=== PATIENT | male | born 1975 | race Caucasian/White ===

== ENCOUNTER 2021-04-02 14:22 | Inpatient (IN) | payer SELFPAY ==
[~2021-04-02] VITALS: Ht 160 cm; Wt 72.0 kg
--- NOTE | 2021-04-02 14:35 | ED Cough/URI ---
General Stated Complaint: SOB,COVID + Source: patient Exam Limitations: no limitations (BINDU GARNER APRN) History of Present Illness Date Seen by Provider: Apr 02, 2021 Time Seen by Provider: 14:35 Initial Comments To ER from [facility] walk-in clinic with reports of shortness of breath. He was swabbed for Covid and found to be positive. His symptoms started about 4 days ago. He formerly saw Dr. Francois but states that he has not seen him in a long time. Timing/Duration: just prior to arrival, getting worse Severity/Quality: moderate Modifying Factors: Worse With Activity Associated Symptoms: cough, shortness of breath (BINDU GARNER APRN) Allergies and Home Medications Allergies Coded Allergies: No Allergy Information Available (Unverified , 04/02/21) Patient Home Medication List Home Medication List Reviewed: Yes (BINDU GARNER APRN) Review of Systems Review of Systems Constitutional: see HPI, chills, weakness EENTM: see HPI Respiratory: see HPI, cough, short of breath Cardiovascular: no symptoms reported Genitourinary: no symptoms reported Musculoskeletal: no symptoms reported Skin: no symptoms reported Psychiatric/Neurological: No Symptoms Reported Hematologic/Lymphatic: No Symptoms Reported (BINDU GARNER APRN) Physical Exam Vital Signs - First Documented 04/02/21 14:33 Temp 37.2 Pulse 87 Resp 24 B/P (MAP) 137/79 (98) Pulse Ox 81 O2 Delivery Room Air (CORBY ALEXANDER MD) Capillary Refill : (BINDU GARNER APRN) Height: '" Weight: lbs. oz. kg; BMI Method: General Appearance: WD/WN, no apparent distress, other (Speaks in phrases. Tachypneic with a respiratory rate of about 28. Oxygen saturation 80% on room air. Comes up to 94% with 3 L supplemental oxygen.) Eyes: Bilateral Eye Normal Inspection, Bilateral Eye PERRL, Bilateral Eye EOMI Neck: non-tender, full range of motion Respiratory: no respiratory distress, no accessory muscle use, decreased breath sounds Cardiovascular: regular rate, rhythm, no murmur Gastrointestinal: normal bowel sounds, non tender Extremities: normal range of motion, non-tender Neurologic/Psychiatric: alert, normal mood/affect, oriented x 3 Skin: normal color, warm/dry (BINDU GARNER APRN) Progress/Results/Core Measures Suspected Sepsis SIRS Temperature: Pulse: Respiratory Rate: Laboratory Tests 04/02/21 14:33: White Blood Count 5.1 Blood Pressure / Mean: Laboratory Tests 04/02/21 14:33: Creatinine 0.92, INR Comment 0.9, Platelet Count 170, Total Bilirubin 0.8 (BINDU GARNER APRN) Results/Orders Lab Results Laboratory Tests Test 04/02/21 14:33 Range/Units White Blood Count 5.1 4.3-11.0 10^3/uL Red Blood Count 5.99 H 4.30-5.52 10^6/uL Hemoglobin 16.2 13.3-17.7 g/dL Hematocrit 49 40-54 % Mean Corpuscular Volume 81 80-99 fL Mean Corpuscular Hemoglobin 27 25-34 pg Mean Corpuscular Hemoglobin Concent 33 32-36 g/dL Red Cell Distribution Width 12.2 10.0-14.5 % Platelet Count 170 130-400 10^3/uL Mean Platelet Volume 11.2 9.0-12.2 fL Immature Granulocyte % (Auto) 1 % Neutrophils (%) (Auto) 65 42-75 % Lymphocytes (%) (Auto) 25 12-44 % Monocytes (%) (Auto) 9 0-12 % Eosinophils (%) (Auto) 0 0-10 % Basophils (%) (Auto) 0 0-10 % Neutrophils # (Auto) 3.3 1.8-7.8 10^3/uL Lymphocytes # (Auto) 1.3 1.0-4.0 10^3/uL Monocytes # (Auto) 0.5 0.0-1.0 10^3/uL Eosinophils # (Auto) 0.0 0.0-0.3 10^3/uL Basophils # (Auto) 0.0 0.0-0.1 10^3/uL Immature Granulocyte # (Auto) 0.1 0.0-0.1 10^3/uL Prothrombin Time 12.7 12.2-14.7 SEC INR Comment 0.9 0.8-1.4 D-Dimer 0.97 H 0.00-0.49 UG/ML Sodium Level 132 L 135-145 MMOL/L Potassium Level 3.5 L 3.6-5.0 MMOL/L Chloride Level 94 L 98-107 MMOL/L Carbon Dioxide Level 26 21-32 MMOL/L Anion Gap 12 5-14 MMOL/L Blood Urea Nitrogen 8 7-18 MG/DL Creatinine 0.92 0.60-1.30 MG/DL Estimat Glomerular Filtration Rate > 60 BUN/Creatinine Ratio 9 Glucose Level 230 H 70-105 MG/DL Calcium Level 8.9 8.5-10.1 MG/DL Corrected Calcium 9.2 8.5-10.1 MG/DL Total Bilirubin 0.8 0.1-1.0 MG/DL Aspartate Amino Transf (AST/SGOT) 64 H 5-34 U/L Alanine Aminotransferase (ALT/SGPT) 79 H 0-55 U/L Alkaline Phosphatase 213 H 40-136 U/L C-Reactive Protein High Sensitivity 17.24 H 0.00-0.50 MG/DL Total Protein 8.0 6.4-8.2 GM/DL Albumin 3.6 3.2-4.5 GM/DL Procalcitonin 0.49 H <0.10 NG/ML (CORBY ALEXANDER MD) Medications Given in ED Current Medications Medications Dose Ordered Sig/Marissa Route Start Time Stop Time Status Last Admin Dose Admin Iohexol 100 ml ONCE ONCE IV 04/02/21 15:30 04/02/21 15:31 DC 04/02/21 16:50 66 ML Sodium Chloride 10 ml NEEDED PRN IV 04/02/21 15:30 04/02/21 17:16 DC 04/02/21 16:50 10 ML Sodium Chloride 100 ml ONCE ONCE IV 04/02/21 15:30 04/02/21 15:31 DC 04/02/21 16:50 80 ML (CORBY ALEXANDER MD) Vital Signs/I&O 04/02/21 14:33 Temp 37.2 Pulse 87 Resp 24 B/P (MAP) 137/79 (98) Pulse Ox 81 O2 Delivery Room Air (CORBY ALEXANDER MD) Vital Signs/I&O Capillary Refill : (BINDU GARNER APRN) Diagnostic Imaging Diagonstic Imaging: Xray Comments NAME: KALIN MARROQUIN Paul [facility] REC#: [id number] PT STATUS: REG ER : 1975 PHYSICIAN: BINDU GARNER APRN ADMIT DATE: 04/02/21/ER Signed Date of Exam:04/02/21 CHEST 1 VIEW, AP/PA ONLY INDICATION: COVID-19 positive. TIME OF EXAM: 03:15 p.m. COMPARISON: Correlation is made with prior chest from 12/04/2007. FINDINGS: Heart size is stable. There are patchy infiltrates in the right upper and lower lung field. There is also some patchy infiltrate in the left base. Findings are consistent with pneumonia. No effusion or pneumothorax is detected. IMPRESSION: Patchy bilateral infiltrates, consistent with pneumonia. Dictated by: Dictated on workstation # [id number] Dict: 04/02/21 1518 Trans: 04/02/21 1525 AS6 [id number] Interpreted by: YASMINE ASHFORD MD Electronically signed by: YASMINE ASHFORD MD 04/02/21 1525 (BINDU GARNER APRN) Departure Communication (Admissions) Spoke with Dr. Keen, will admit, give remdesivir, Decadron, steroids and supplemental oxygen. On 4 L he is at 94%. (BINDU GARNER APRN) Impression Primary Impression: COVID-19 Additional Impression: Hypoxia Disposition: ADMITTED INPATIENT Condition: Stable Admissions Decision to Admit Reason: Admit from ER (General) Decision to Admit/Date: Apr 02, 2021 Time/Decision to Admit Time: 16:32 (BINDU GARNER APRN) Departure-Patient Inst. Referrals: VICENTE FRANCOIS DO (PCP/Family) Primary Care Physician Attending physician statement: I was physically present as attending physician in the emergency room at the time of this patient's care, but I was not directly involved in the patient's care. (CORBY ALEXANDER MD) BINDU GARNER APRN Apr 02, 2021 14:35 CORBY ALEXANDER MD Apr 02, 2021 19:30
[2021-04-02 15:00] LABS: BASOPHILS % (AUTO) 0 % (0-10); EOSINOPHILS % (AUTO) 0 % (0-10); HEMATOCRIT 49 % (40-54); HEMOGLOBIN 16.2 g/dL (13.3-17.7); LYMPHOCYTES # (AUTO) 1.3 10^3/uL (1.0-4.0); LYMPHOCYTES % (AUTO) 25 % (12-44); MEAN CORPUSCULAR HEMOGLOBIN 27 pg (25-34); MEAN CORPUSCULAR HGB CONC 33 g/dL (32-36); MEAN CORPUSCULAR VOLUME 81 fL (80-99); MEAN PLATELET VOLUME 11.2 fL (9.0-12.2); MONOCYTES # (AUTO) 0.5 10^3/uL (0.0-1.0); MONOCYTES % (AUTO) 9 % (0-12); NEUTROPHILS # (AUTO) 3.3 10^3/uL (1.8-7.8); NEUTROPHILS % (AUTO) 65 % (42-75); PLATELET COUNT 170 10^3/uL (130-400); WHITE BLOOD COUNT 5.1 10^3/uL (4.3-11.0)
[2021-04-02 15:11] LABS: ALBUMIN 3.6 GM/DL (3.2-4.5); CHLORIDE 94 MMOL/L (98-107); POTASSIUM 3.5 MMOL/L (3.6-5.0); SODIUM 132 MMOL/L (135-145)
[2021-04-02 15:12] LABS: CALCIUM 8.9 MG/DL (8.5-10.1)
[2021-04-02 15:13] LABS: GLUCOSE 230 MG/DL (70-105)
[2021-04-02 15:14] LABS: CARBON DIOXIDE 26 MMOL/L (21-32); FIBRIN DEGRADATION PRODUCTS 0.97 UG/ML (0.00-0.49); INR 0.9 (0.8-1.4); PROTHROMBIN TIME PATIENT 12.7 SEC (12.2-14.7)
[2021-04-02 15:15] LABS: BILIRUBIN,TOTAL 0.8 MG/DL (0.1-1.0)
[2021-04-02 15:17] LABS: ALKALINE PHOSPHATASE 213 U/L (40-136); CREATININE SERUM 0.92 MG/DL (0.60-1.30); GFR ESTIMATED > 60
[2021-04-02 15:18] LABS: BUN/CREATININE RATIO 9
[2021-04-02 15:20] LABS: ALANINE AMINOTRANSFERASE 79 U/L (0-55)
--- NOTE | 2021-04-02 15:25 | Diagnostic Imaging Report ---
INDICATION: COVID-19 positive. TIME OF EXAM: 03:15 p.m. COMPARISON: Correlation is made with prior chest from 12/04/2007. FINDINGS: Heart size is stable. There are patchy infiltrates in the right upper and lower lung field. There is also some patchy infiltrate in the left base. Findings are consistent with pneumonia. No effusion or pneumothorax is detected. IMPRESSION: Patchy bilateral infiltrates, consistent with pneumonia. Dictated by: Dictated on workstation # [id number]
[2021-04-02] MEDS ORDERED: CATHETER FLUSH 10 ML SYR IV PRN ×2 (15:30→17:30)
[2021-04-02] MEDS ORDERED: NS 100 ML (IVPB) BAG IV ONE (15:30)
[2021-04-02] MEDS ORDERED: IOHEXOL 350 MG/ML 100 ML (OMNIPAQUE 350) VIAL IV ONE (15:30)
[2021-04-02] MEDS ORDERED: HOLD METFORMIN - RECEIVED CONTRAST 20 ML VIAL IV SCH (15:30)
--- NOTE | 2021-04-02 17:08 | Diagnostic Imaging Report ---
EXAMINATION: CT angiography of the chest. TECHNIQUE: Contrast enhanced thin section helical images were obtained through the chest with intravenous contrast timed for the optimal opacification of the arterial structures per CTA protocol. Post-processing, reconstructions and interpretation of angiographic images of the vessels was performed. 3D MIP reconstructions were performed and reviewed. All CT scans use one or more of the following dose optimizing techniques: automated exposure control, MA and/or KvP adjustment based on patient size and exam type or iterative reconstruction. HISTORY: Covid +, elevated d-dimer, SOA. COMPARISON: Chest radiograph 04/02/2021. FINDINGS: Vascular: No filling defects within the pulmonary arteries. Thoracic aorta is normal in caliber. Normal Thyroid: The thyroid is normal. Mediastinum: Heart size is normal without significant pericardial effusion. There are a few prominent mediastinal lymph nodes which are not pathologically enlarged and may be reactive. Lungs and airways: There are patchy groundglass opacities throughout both lungs. No pleural effusion or pneumothorax. The airways are normal. Upper abdomen: The subphrenic structures are normal. Musculoskeletal: No suspicious osseous lesion or compression fracture. IMPRESSION: 1. No findings of pulmonary embolus. 2. Patchy groundglass opacities throughout both lungs compatible with history of Covid-19 and pneumonia. Dictated by: Dictated on workstation # [id number]
[2021-04-02] MEDS ORDERED: ONDANSETRON 4 MG/2 ML (SDV) Z0FRAN IV PRN (17:30)
[2021-04-02] MEDS ORDERED: ACETAMINOPHEN 650 MG SUPP (TYLENOL) PR PRN (17:30)
[2021-04-02] MEDS ORDERED: REMDESIVIR 200 MG/NS 250 ML IVPB IV NR ×2 (17:30)
[2021-04-02] MEDS: dexAMETHasone 6 MG TAB (DECADRON) PO SCH (17:45)
[2021-04-02] MEDS: ENOXAPARIN 40 MG/0.4 ML (LOVENOX) SYR SC SCH (17:45)
[2021-04-02 18:16] VITALS: BP 137/79
[2021-04-02] MEDS ORDERED: RT-ALBUTEROL INHALER HFA (VENTOLIN HFA) 18 GM IH PRN (18:30)
[2021-04-02 20:30] VITALS: BP 126/75
[2021-04-02] MEDS: RT-ALBUTEROL INHALER HFA (VENTOLIN HFA) 18 GM IH SCH (20:58)
[2021-04-02] MEDS ORDERED: RT-ALBUTEROL INHALER HFA (VENTOLIN HFA) 18 GM IH SCH (21:00)
[2021-04-02] MEDS: CATHETER FLUSH 10 ML SYR IV SCH (22:00)
[2021-04-03] VITALS: BP 119/67
[2021-04-03] MEDS: RT-ALBUTEROL INHALER HFA (VENTOLIN HFA) 18 GM IH SCH ×4 (03:56→19:20)
[2021-04-03 04:42] VITALS: BP 118/68
[2021-04-03 05:56] LABS: BASOPHILS % (AUTO) 0 % (0-10); EOSINOPHILS % (AUTO) 0 % (0-10); HEMATOCRIT 47 % (40-54); HEMOGLOBIN 15.4 g/dL (13.3-17.7); LYMPHOCYTES # (AUTO) 0.7 10^3/uL (1.0-4.0); LYMPHOCYTES % (AUTO) 23 % (12-44); MEAN CORPUSCULAR HEMOGLOBIN 27 pg (25-34); MEAN CORPUSCULAR HGB CONC 33 g/dL (32-36); MEAN CORPUSCULAR VOLUME 81 fL (80-99); MEAN PLATELET VOLUME 11.2 fL (9.0-12.2); MONOCYTES # (AUTO) 0.2 10^3/uL (0.0-1.0); MONOCYTES % (AUTO) 6 % (0-12); NEUTROPHILS % (AUTO) 70 % (42-75); PLATELET COUNT 217 10^3/uL (130-400); WHITE BLOOD COUNT 2.9 10^3/uL (4.3-11.0)
[2021-04-03 05:58] LABS: ALBUMIN 3.3 GM/DL (3.2-4.5)
[2021-04-03 05:59] LABS: CHLORIDE 94 MMOL/L (98-107); POTASSIUM 3.7 MMOL/L (3.6-5.0); SODIUM 132 MMOL/L (135-145)
[2021-04-03 06:00] LABS: CALCIUM 8.7 MG/DL (8.5-10.1)
[2021-04-03 06:01] LABS: GLUCOSE 246 MG/DL (70-105); TOTAL PROTEIN 7.4 GM/DL (6.4-8.2)
[2021-04-03 06:02] LABS: CARBON DIOXIDE 20 MMOL/L (21-32)
[2021-04-03 06:03] LABS: BILIRUBIN,TOTAL 0.7 MG/DL (0.1-1.0)
[2021-04-03 06:04] LABS: ALKALINE PHOSPHATASE 186 U/L (40-136)
[2021-04-03 06:05] LABS: CREATININE SERUM 0.79 MG/DL (0.60-1.30); GFR ESTIMATED > 60
[2021-04-03 06:06] LABS: BUN/CREATININE RATIO 13
[2021-04-03 06:08] LABS: ALANINE AMINOTRANSFERASE 69 U/L (0-55)
[2021-04-03] MEDS: CATHETER FLUSH 10 ML SYR IV SCH ×3 (06:22→21:09)
[2021-04-03 06:30] LABS: SMEAR SCAN COMMENT YES
[2021-04-03 07:32] VITALS: BP 125/76
[2021-04-03] MEDS: UMECLIDINIUM BROMIDE (INCRUSE ELLIPTA) 7'S IH SCH (08:43)
[2021-04-03] MEDS: dexAMETHasone 6 MG TAB (DECADRON) PO SCH (09:16)
--- NOTE | 2021-04-03 11:30 | History & Physical-Hospitalist ---
History of Present Illness Date Seen 04/03/21 Time Seen by a Provider: 11:26 Attending Physician Alejo Cabello MD PCP Asa Banks DO Referring Physician Date of Admission Apr 02, 2021 at 16:27 Home Medications & Allergies Home Medications Reviewed patient Home Medication Reconciliation performed by pharmacy medication reconciliations electronic sales and service technician and/or nursing. Patients Allergies have been reviewed. Allergies Allergies Coded Allergies No Allergy Information Available (Unverified04/02/21) Past Mhgifyo-Hppjzv-Ypkskl Hx Patient Social History Tobacco Use?: No Substance use?: No Alcohol Use?: No Pt feels they are or have been: No Immunizations Up To Date Hepatitis A: Yes Hepatitis B: Yes Seasonal Allergies Seasonal Allergies: No Current Status Advance Directives: No Communicates: Verbally Is interpretation needed?: No Implanted or Applied Medical D: None Past Medical History Blood Disorders: No Physical Exam Physical Exam Vital Signs Vital Signs - First Documented 04/02/21 04/02/21 04/02/21 14:33 17:32 18:16 Temp 37.2 Pulse 87 Resp 24 B/P (MAP) 137/79 (98) Pulse Ox 81 O2 Delivery Room Air O2 Flow Rate 2.00 FiO2 21 Capillary Refill : Less Than 3 Seconds Height, Weight, BMI Height: '" Weight: lbs. oz. kg; 28.12 BMI Method: Results Results/Procedures Labs Laboratory Tests 04/02/21 14:33 04/03/21 05:37 Patient resulted labs reviewed. Assessment/Plan Admission Diagnosis Acute hypoxic respiratory failure due to COVID-19 Admission Status: Observation Assessment and Plan Acute hypoxic respiratory failure due to COVID-19 Satting 81% on room air ALEJO CABELLO MD Apr 03, 2021 11:30
[2021-04-03 12:21] VITALS: BP 122/76
--- NOTE | 2021-04-03 12:27 | History & Physical-Hospitalist ---
History of Present Illness HPI/Chief Complaint Pt is a 45yoCM with no known past medical history who p resented to the ER due to hypoxia. He has not been feeling well for 4-5 days and was seen at a local walk in clinic yesterday and tested for COVID. He was found to be positive and was hypoxic there and referred to the ER. On arrival here he was satting 81%. He was admitted for further care. This morning he states he is feeling well. Has no specific complaints and thinks his breathing is much better. Source: patient Date Seen 04/03/21 Time Seen by a Provider: 12:20 Attending Physician Alejo Cabello MD PCP Asa Banks DO Referring Physician Date of Admission Apr 02, 2021 at 16:27 Home Medications & Allergies Home Medications Reviewed patient Home Medication Reconciliation performed by pharmacy medication reconciliations gameroom technician and/or nursing. Patients Allergies have been reviewed. Allergies Allergies Coded Allergies No Allergy Information Available (Unverified04/02/21) Past Aitrlvk-Qamqwa-Kkwhog Hx Patient Social History Tobacco Use?: No Smoking Status: Never a Smoker Substance use?: No Alcohol Use?: No Pt feels they are or have been: No Immunizations Up To Date First/Initial COVID19 Vaccinat: Has not had it Hepatitis A: Yes Hepatitis B: Yes Seasonal Allergies Seasonal Allergies: No Current Status Advance Directives: No Communicates: Verbally Is interpretation needed?: No Implanted or Applied Medical D: None Past Medical History Blood Disorders: No Family Medical History Reviewed Nursing Family Hx No Pertinent Family Hx Review of Systems Constitutional: No fever; malaise, weakness Respiratory: cough, short of breath Cardiovascular: No chest pain, No edema, No palpitations Gastrointestinal: No abdominal pain, No constipation, No nausea, No vomiting Genitourinary: No dysuria, No frequency Musculoskeletal: no symptoms reported Skin: no symptoms reported Psychiatric/Neurological: No Symptoms Reported Physical Exam Physical Exam Vital Signs Vital Signs - First Documented 04/02/21 04/02/21 04/02/21 14:33 17:32 18:16 Temp 37.2 Pulse 87 Resp 24 B/P (MAP) 137/79 (98) Pulse Ox 81 O2 Delivery Room Air O2 Flow Rate 2.00 FiO2 21 Capillary Refill : Less Than 3 Seconds Height, Weight, BMI Height: '" Weight: lbs. oz. kg; 28.12 BMI Method: General Appearance: No Apparent Distress, WD/WN HEENT: PERRL/EOMI, Moist Mucous Membranes; No Scleral Icterus (L), No Scleral Icterus (R) Neck: Normal Inspection, Supple Respiratory: No Accessory Muscle Use, No Respiratory Distress, Crackles (bilaterally) Cardiovascular: Regular Rate, Rhythm, No Murmur Gastrointestinal: Normal Bowel Sounds, Non Tender, Soft Extremity: No Calf Tenderness, No Pedal Edema Neurologic/Psychiatric: Alert, Oriented x3 Skin: Normal Color, Warm/Dry Results Results/Procedures Labs Laboratory Tests 04/02/21 14:33 04/03/21 05:37 Patient resulted labs reviewed. Imaging: Reviewed Imaging Report [facility] [place] [place] NAME: KALIN MARROQUIN [facility] REC#: [id number] PT STATUS: REG ER : 1975 PHYSICIAN: BINDU GARNER APRN ADMIT DATE: 04/02/21/ER Signed Date of Exam:04/02/21 CHEST 1 VIEW, AP/PA ONLY INDICATION: COVID-19 positive. TIME OF EXAM: 03:15 p.m. COMPARISON: Correlation is made with prior chest from 12/04/2007. FINDINGS: Heart size is stable. There are patchy infiltrates in the right upper and lower lung field. There is also some patchy infiltrate in the left base. Findings are consistent with pneumonia. No effusion or pneumothorax is detected. IMPRESSION: Patchy bilateral infiltrates, consistent with pneumonia. Dictated by: Dictated on workstation # [id number] Dict: 04/02/21 1518 Trans: 04/02/21 1525 [id number] [id number] Interpreted by: YASMINE ASHFORD MD Electronically signed by: YASMINE ASHFORD MD 04/02/21 1525 [facility] [place] [place] NAME: KALIN MARROQUIN Paul [facility] REC#: [id number] PT STATUS: ADM IN : 1975 PHYSICIAN: BINDU GARNER APRN ADMIT DATE: 04/02/21/[facility] Draft Date of Exam:04/02/21 CT ANGIO CHEST W EXAMINATION: CT angiography of the chest. TECHNIQUE: Contrast enhanced thin section helical images were obtained through the chest with intravenous contrast timed for the optimal opacification of the arterial structures per CTA protocol. Post-processing, reconstructions and interpretation of angiographic images of the vessels was performed. 3D MIP reconstructions were performed and reviewed. All CT scans use one or more of the following dose optimizing techniques: automated exposure control, MA and/or KvP adjustment based on patient size and exam type or iterative reconstruction. HISTORY: Covid +, elevated d-dimer, SOA. COMPARISON: Chest radiograph 04/02/2021. FINDINGS: Vascular: No filling defects within the pulmonary arteries. Thoracic aorta is normal in caliber. Normal Thyroid: The thyroid is normal. Mediastinum: Heart size is normal without significant pericardial effusion. There are a few prominent mediastinal lymph nodes which are not pathologically enlarged and may be reactive. Lungs and airways: There are patchy groundglass opacities throughout both lungs. No pleural effusion or pneumothorax. The airways are normal. Upper abdomen: The subphrenic structures are normal. Musculoskeletal: No suspicious osseous lesion or compression fracture. IMPRESSION: 1. No findings of pulmonary embolus. 2. Patchy groundglass opacities throughout both lungs compatible with history of Covid-19 and pneumonia. Dictated on workstation # [id number] Dict: 04/02/21 1655 Trans: 04/02/21 1708 [facility] [id number] Interpreted by: MANE TORRES DO Electronically signed by: Assessment/Plan Admission Diagnosis Acute hypoxic respiratory failure due to COVID-19 Admission Status: Inpatient Order (span 2 midnights) Reason for Inpatient Admission: see below Assessment and Plan Acute hypoxic respiratory failure due to COVID-19 Satting 81% on room air on arrival Oxygen supplementation to keeps sats >90% Remdesivir Convalescent plasma ordered Decadron Hyperglycemia Denies history of DM Anticipate worsening with steroids A1c ordered SSI Elevated d-dimer Likely due to COVID CTA negative for PE DVT ppx: Lovenox Diagnosis/Problems Diagnosis/Problems (1) Acute respiratory failure (2) Hyperglycemia (3) COVID-19 Status: Acute ALEJO CABELLO MD Apr 03, 2021 12:27
[2021-04-03] MEDS: REMDESIVIR 100 MG/NS 250 ML IVPB IV SCH ×2 (15:58)
[2021-04-03 16:00] VITALS: BP 122/70
[2021-04-03] MEDS: ENOXAPARIN 40 MG/0.4 ML (LOVENOX) SYR SC SCH (17:02)
[2021-04-03] MEDS: inSUlin ASPART (NovoLOG) 1 UNIT/0.01 ML (CHARGE PER UNIT) SC SCH ×2 (17:02→21:09)
[2021-04-03 20:00] VITALS: BP 125/71
[2021-04-04 00:03] VITALS: BP 112/73
[2021-04-04] MEDS: RT-ALBUTEROL INHALER HFA (VENTOLIN HFA) 18 GM IH SCH ×4 (03:07→21:19)
[2021-04-04 04:30] VITALS: BP 123/72
[2021-04-04] MEDS: inSUlin ASPART (NovoLOG) 1 UNIT/0.01 ML (CHARGE PER UNIT) SC SCH ×4 (05:59→21:11)
[2021-04-04] MEDS: CATHETER FLUSH 10 ML SYR IV SCH ×3 (06:01→19:49)
[2021-04-04 07:43] VITALS: BP 109/61
[2021-04-04] MEDS: UMECLIDINIUM BROMIDE (INCRUSE ELLIPTA) 7'S IH SCH (08:18)
[2021-04-04] MEDS: dexAMETHasone 6 MG TAB (DECADRON) PO SCH (09:27)
[2021-04-04 11:41] VITALS: BP 119/65
--- NOTE | 2021-04-04 12:29 | Progress Note - Hospitalist ---
Subjective HPI/CC On Admission Date Seen by Provider: Apr 04, 2021 Time Seen by Provider: 12:25 Pt is a 45yoCM with no known past medical history who p resented to the ER due to hypoxia. He has not been feeling well for 4-5 days and was seen at a local walk in clinic yesterday and tested for COVID. He was found to be positive and was hypoxic there and referred to the ER. On arrival here he was satting 81%. He was admitted for further care. This morning he states he is feeling well. Has no specific complaints and thinks his breathing is much better. Subjective/Events-last exam pt reports doing well. Breathign easier. No new complaints today. He is up to 5lpm today though. I checked sat while in room and it was 90-91%. Discussed with nurse to watch saturations as requirement is going up. Objective Exam Vital Signs Vital Signs Date Time Temp Pulse Resp B/P (MAP) Pulse Ox O2 Delivery O2 Flow Rate FiO2 04/04/21 11:41 36.6 68 20 119/65 (83) 93 Nasal Cannula 5.00 04/02/21 18:16 21 Capillary Refill : Less Than 3 Seconds General Appearance: No Apparent Distress, Obese Respiratory: No Accessory Muscle Use, Crackles, Other (on 5lpm) Cardiovascular: Regular Rate, Rhythm, No Murmur Extremity: No Calf Tenderness, No Pedal Edema Neurologic/Psychiatric: Alert, Oriented x3 Results/Procedures Lab Patient resulted labs reviewed. Imaging: Reviewed Imaging Report Assessment/Plan Assessment and Plan Assess & Plan/Chief Complaint Acute hypoxic respiratory failure due to COVID-19 Currently on 5lpm Oxygen supplementation to keeps sats >90% Remdesivir Convalescent plasma not actually ordered on admission order set, will order now Decadron Hyperglycemia Denies history of DM Anticipate worsening with steroids A1c 13.4, will need insulin on discharge SSI Elevated d-dimer Likely due to COVID CTA negative for PE DVT ppx: Lovenox Diagnosis/Problems Diagnosis/Problems (1) Acute respiratory failure (2) Hyperglycemia (3) COVID-19 Status: Acute ALEJO KYLE MD Apr 04, 2021 12:29
[2021-04-04] MEDS ORDERED: NS IV 500 ML 500 ML IV SCH (12:30)
--- NOTE | 2021-04-04 13:28 | Diagnostic Imaging Report ---
Indication: COVID 19 positive. Time of exam: 1:06 PM Correlation is made with prior chest from 04/02/2021. Heart size is stable. Patchy bilateral infiltrates appear to be improved on today's study and demonstrate partial clearing. There continues to be some mild bibasilar infiltrates. There is no effusion or pneumothorax. Impression: Partial clearing bilateral infiltrates when compared to examination 2 days earlier. Dictated by: Dictated on workstation # [id number]
[2021-04-04 16:00] VITALS: BP 122/71
[2021-04-04] MEDS: ENOXAPARIN 40 MG/0.4 ML (LOVENOX) SYR SC SCH (17:35)
[2021-04-04] MEDS: REMDESIVIR 100 MG/NS 250 ML IVPB IV SCH ×4 (17:48→19:49)
[2021-04-04 19:57] VITALS: BP 123/63
[2021-04-05] VITALS (10 sets, daily range): BP systolic 106–129; BP diastolic 60–77
[2021-04-05] MEDS: RT-ALBUTEROL INHALER HFA (VENTOLIN HFA) 18 GM IH SCH ×4 (04:18→20:25)
[2021-04-05 05:38] LABS: BASOPHILS % (AUTO) 0 % (0-10); EOSINOPHILS % (AUTO) 0 % (0-10); HEMATOCRIT 46 % (40-54); HEMOGLOBIN 15.2 g/dL (13.3-17.7); LYMPHOCYTES # (AUTO) 1.1 10^3/uL (1.0-4.0); LYMPHOCYTES % (AUTO) 11 % (12-44); MEAN CORPUSCULAR HEMOGLOBIN 27 pg (25-34); MEAN CORPUSCULAR HGB CONC 33 g/dL (32-36); MEAN CORPUSCULAR VOLUME 81 fL (80-99); MEAN PLATELET VOLUME 11.2 fL (9.0-12.2); MONOCYTES # (AUTO) 0.5 10^3/uL (0.0-1.0); MONOCYTES % (AUTO) 5 % (0-12); NEUTROPHILS # (AUTO) 8.4 10^3/uL (1.8-7.8); NEUTROPHILS % (AUTO) 83 % (42-75); PLATELET COUNT 235 10^3/uL (130-400); WHITE BLOOD COUNT 10.2 10^3/uL (4.3-11.0)
[2021-04-05 05:49] LABS: CHLORIDE 97 MMOL/L (98-107); POTASSIUM 3.8 MMOL/L (3.6-5.0); SODIUM 132 MMOL/L (135-145)
[2021-04-05 05:51] LABS: GLUCOSE 250 MG/DL (70-105); TOTAL PROTEIN 6.6 GM/DL (6.4-8.2)
[2021-04-05 05:52] LABS: CARBON DIOXIDE 23 MMOL/L (21-32)
[2021-04-05 05:53] LABS: BILIRUBIN,TOTAL 0.6 MG/DL (0.1-1.0)
[2021-04-05 05:55] LABS: ALKALINE PHOSPHATASE 161 U/L (40-136); CREATININE SERUM 0.83 MG/DL (0.60-1.30); GFR ESTIMATED > 60
[2021-04-05 05:56] LABS: BUN/CREATININE RATIO 19
[2021-04-05 05:58] LABS: ALANINE AMINOTRANSFERASE 49 U/L (0-55)
[2021-04-05] MEDS: inSUlin ASPART (NovoLOG) 1 UNIT/0.01 ML (CHARGE PER UNIT) SC SCH ×4 (06:20→21:20)
[2021-04-05] MEDS: CATHETER FLUSH 10 ML SYR IV SCH ×3 (06:22→21:20)
[2021-04-05] MEDS: UMECLIDINIUM BROMIDE (INCRUSE ELLIPTA) 7'S IH SCH (08:17)
[2021-04-05] MEDS: dexAMETHasone 6 MG TAB (DECADRON) PO SCH (08:34)
--- NOTE | 2021-04-05 13:42 | Progress Note - Hospitalist ---
Subjective HPI/CC On Admission Date Seen by Provider: Apr 05, 2021 Time Seen by Provider: 13:39 Pt is a 45yoCM with no known past medical history who p resented to the ER due to hypoxia. He has not been feeling well for 4-5 days and was seen at a local walk in clinic yesterday and tested for COVID. He was found to be positive and w as hypoxic there and referred to the ER. On arrival here he was satting 81%. He was admitted for further care. This morning he states he is feeling well. Has no specific complaints and thinks his breathing is much better. Subjective/Events-last exam pt reports doing well. Currently on 5lpm and wondering how his oxygen level is. I checked it during exam and it was 96-97%. No other complaints or questions. Objective Exam Vital Signs Vital Signs Date Time Temp Pulse Resp B/P (MAP) Pulse Ox O2 Delivery O2 Flow Rate FiO2 04/05/21 13:15 36.5 61 20 108/60 95 Room Air 5.00 04/02/21 18:16 21 Capillary Refill : Less Than 3 Seconds General Appearance: No Apparent Distress, WD/WN Respiratory: Lungs Clear, No Respiratory Distress Cardiovascular: Regular Rate, Rhythm, No Murmur Gastrointestinal: Normal Bowel Sounds, Soft Neurologic/Psychiatric: Alert, Oriented x3 Results/Procedures Lab Laboratory Tests 04/05/21 05:26 Patient resulted labs reviewed. Imaging: Reviewed Imaging Report Assessment/Plan Assessment and Plan Assess & Plan/Chief Complaint Acute hypoxic respiratory failure due to COVID-19 Currently on 5lpm Oxygen supplementation to keeps sats >90% Remdesivir Convalescent plasma transfusing today Decadron CXR improving Hyperglycemia Denies history of DM Anticipate worsening with steroids A1c 13.4, will need insulin on discharge SSI, added Levemir Elevated d-dimer Likely due to COVID CTA negative for PE DVT ppx: Lovenox Diagnosis/Problems Diagnosis/Problems (1) Acute respiratory failure (2) Hyperglycemia (3) COVID-19 Status: Acute ALEJO KYLE MD Apr 05, 2021 13:42
[2021-04-05] MEDS: REMDESIVIR 100 MG/NS 250 ML IVPB IV SCH ×2 (17:30)
[2021-04-05] MEDS: ENOXAPARIN 40 MG/0.4 ML (LOVENOX) SYR SC SCH (17:30)
[2021-04-06] VITALS (7 sets, daily range): BP systolic 101–131; BP diastolic 56–79
[2021-04-06] MEDS: RT-ALBUTEROL INHALER HFA (VENTOLIN HFA) 18 GM IH SCH ×4 (03:49→20:48)
[2021-04-06] MEDS: CATHETER FLUSH 10 ML SYR IV SCH ×3 (06:12→20:20)
[2021-04-06] MEDS: inSUlin ASPART (NovoLOG) 1 UNIT/0.01 ML (CHARGE PER UNIT) SC SCH ×4 (06:14→20:20)
[2021-04-06] MEDS: UMECLIDINIUM BROMIDE (INCRUSE ELLIPTA) 7'S IH SCH (09:38)
[2021-04-06] MEDS: dexAMETHasone 6 MG TAB (DECADRON) PO SCH (09:58)
[2021-04-06] MEDS: REMDESIVIR 100 MG/NS 250 ML IVPB IV SCH ×2 (16:17)
[2021-04-06] MEDS: ENOXAPARIN 40 MG/0.4 ML (LOVENOX) SYR SC SCH (16:23)
--- NOTE | 2021-04-06 19:11 | Progress Note - Hospitalist ---
Subjective HPI/CC On Admission Date Seen by Provider: Apr 06, 2021 Time Seen by Provider: 11:00 Pt is a 45yoCM with no known past medical history who p resented to the ER due to hypoxia. He has not been feeling well for 4-5 days and was seen at a local walk in clinic yesterday and tested for COVID. He was found to be positive and was hypoxic there and referred to the ER. On arrival here he was satting 81%. He was admitted for further care. This morning he states he is feeling well. Has no specific complaints and thinks his breathing is much better. Subjective/Events-last exam He is feeling better. He denies shortness of breath. He has no complaints. Objective Exam Vital Signs Vital Signs Date Time Temp Pulse Resp B/P (MAP) Pulse Ox O2 Delivery O2 Flow Rate FiO2 04/06/21 16:25 36.6 70 20 123/79 (94) 93 Nasal Cannula 3.00 04/06/21 11:59 40 Capillary Refill : Less Than 3 Seconds General Appearance: No Apparent Distress, WD/WN Respiratory: Lungs Clear, Normal Breath Sounds, No Respiratory Distress Cardiovascular: Regular Rate, Rhythm, No Edema, No Murmur Gastrointestinal: Normal Bowel Sounds, Non Tender, Soft Extremity: Normal Inspection, Non Tender, No Pedal Edema Neurologic/Psychiatric: Alert, Oriented x3, No Motor/Sensory Deficits, Normal Mood/Affect Skin: Normal Color, Warm/Dry Results/Procedures Lab Patient resulted labs reviewed. Imaging: Reviewed Imaging Report Assessment/Plan Assessment and Plan Assess & Plan/Chief Complaint Acute respiratory failure due to COVID-19 Currently on 5 L Oxygen supplementation to keeps sats >90% Continue Decadron s/p Remdesivir s/p convalescent plasma Home oxygen study New onset T2DM Steroid induced hyperglycemia Denies history of DM A1c 13.4, will need insulin on discharge Increase Levemir SSI Elevated d-dimer Likely due to COVID Repeat d-dimer tomorrow CTA negative for PE DVT ppx: Lovenox Diagnosis/Problems Diagnosis/Problems (1) Acute respiratory failure Status: Acute Qualifiers: Respiratory failure complication: hypoxia Qualified Codes: J96.01 - Acute respiratory failure with hypoxia (2) COVID-19 Status: Acute (3) New onset type 2 diabetes mellitus Status: Acute (4) Steroid-induced hyperglycemia Status: Acute MIKE BAZZI MD Apr 06, 2021 19:11
[2021-04-07] MEDS: RT-ALBUTEROL INHALER HFA (VENTOLIN HFA) 18 GM IH SCH ×3 (03:08→15:40)
[2021-04-07 04:11] VITALS: BP 118/71
[2021-04-07 06:09] LABS: BUN/CREATININE RATIO 15; CALCIUM 8.2 MG/DL (8.5-10.1); CARBON DIOXIDE 29 MMOL/L (21-32); CHLORIDE 97 MMOL/L (98-107); CREATININE SERUM 0.78 MG/DL (0.60-1.30); GFR ESTIMATED > 60; GLUCOSE 162 MG/DL (70-105); SODIUM 133 MMOL/L (135-145)
[2021-04-07] MEDS: inSUlin ASPART (NovoLOG) 1 UNIT/0.01 ML (CHARGE PER UNIT) SC SCH ×3 (06:11→16:48)
[2021-04-07] MEDS: CATHETER FLUSH 10 ML SYR IV SCH ×2 (06:13→15:00)
[2021-04-07] MEDS: UMECLIDINIUM BROMIDE (INCRUSE ELLIPTA) 7'S IH SCH (07:44)
[2021-04-07 08:00] VITALS: BP 136/82
[2021-04-07] MEDS: dexAMETHasone 6 MG TAB (DECADRON) PO SCH (09:09)
[2021-04-07 12:00] VITALS: BP 115/71
[2021-04-07] MEDS ORDERED: metFORMIN 500 MG (GLUCOPHAGE) TAB PO NR (13:00)
[2021-04-07] MEDS ORDERED: METF-397 PO (13:28)
[2021-04-07 15:55] VITALS: BP 122/61
[2021-04-07] MEDS: ENOXAPARIN 40 MG/0.4 ML (LOVENOX) SYR SC SCH (16:48)
[2021-04-07 18:25] VITALS: BP 122/61
--- NOTE | 2021-04-07 18:27 | Discharge Summary ---
Discharge Summary Hospital Course Problems/Dx: (1) Acute respiratory failure Status: Acute Qualifiers: Qualified Codes: J96.01 - Acute respiratory failure with hypoxia (2) COVID-19 Status: Acute (3) New onset type 2 diabetes mellitus Status: Acute (4) Steroid-induced hyperglycemia Status: Acute Hospital Course Date of Admission: Apr 02, 2021 at 16:27 Admission Diagnosis : Acute respiratory failure due to COVID-19 Family Physician/Provider: Asa Banks DO Date of Discharge: 04/07/21 Discharge Diagnosis: Acute respiratory failure due to COVID-19 Hospital Course: Pieter Garcia is a 45 year old male who was admitted with acute respiratory failure due to COVID-19. He was treated with Decadron, Remdesivir, and convalescent plasma. He required supplemental oxygen throughout his hospitalization. His requirement remained stable for several days prior to discharge. He underwent a home oxygen evaluation and needed 3 L at rest and 8 L with activity. His course was complicated by new onset diabetes mellitus. He was started on Metformin. He will likely require insulin as well. His A1C was 13%. He is uninsured and does not have a primary care physician. He was set up with a follow up appointment at the [facility]. He was discharge home in stable condition with home oxygen. Labs and Pending Lab Test: Laboratory Tests 04/06/21 19:37: Glucometer 305H 04/07/21 05:21: Sodium Level 133L, Potassium Level 4.0, Chloride Level 97L, Carbon Dioxide Level 29, Anion Gap 7, Blood Urea Nitrogen 12, Creatinine 0.78, Estimat Glomerular Filtration Rate > 60, BUN/Creatinine Ratio 15, Glucose Level 162H, Calcium Level 8.2L 04/07/21 07:22: D-Dimer 1.02H 04/07/21 11:39: Glucometer 265H 04/07/21 16:03: Glucometer 299H Microbiology 04/02/21 Blood Culture - Preliminary, Resulted No growth Home Meds Active Metformin HCl 500 Mg Tablet 500 Mg PO DAILY 30 Days Assessment/Pt Instructions Take medications as prescribed. You are being started on Metformin for diabetes. You will likely need insulin as well. Establish care with [facility]. Return with worsening shortness of breath, chest pain, or if you feel like you are getting worse. Discharge Planning: >30 minutes discharge planning Discharge Instructions Discharge Diet: ADA Diet Activity as Tolerated: Yes Discharge Physical Examination Vital Signs Vital Signs Date Time Temp Pulse Resp B/P (MAP) Pulse Ox O2 Delivery O2 Flow Rate FiO2 04/07/21 15:55 36.4 61 24 122/61 (81) 93 Nasal Cannula 3.00 04/06/21 11:59 40 General Appearance: No Apparent Distress, WD/WN Respiratory: Lungs Clear, Normal Breath Sounds, No Respiratory Distress Cardiovascular: Regular Rate, Rhythm, No Edema, No Murmur Gastrointestinal: Normal Bowel Sounds, Non Tender, Soft Extremity: Normal Inspection, Non Tender, No Pedal Edema Skin: Normal Color, Warm/Dry Neurologic/Psychiatric: Alert, Oriented x3, No Motor/Sensory Deficits, Normal Mood/Affect Allergies: Coded Allergies: No Allergy Information Available (Unverified , 04/02/21) Copy Copies To 1: [facility] [place] Discharge Summary Date of Admission Apr 02, 2021 at 16:27 Date of Discharge Discharge Date: Apr 07, 2021 Discharge Time: 18:26 Admission Diagnosis Acute hypoxic respiratory failure due to COVID-19 Discharge Diagnosis Acute respiratory failure due to COVID-19 (1) Acute respiratory failure Status: Acute Qualifiers: Qualified Codes: J96.01 - Acute respiratory failure with hypoxia (2) COVID-19 Status: Acute (3) New onset type 2 diabetes mellitus Status: Acute (4) Steroid-induced hyperglycemia Status: Acute MIKE BAZZI MD Apr 07, 2021 18:25
--- NOTE | 2021-04-09 11:07 | Physician Query Clarification ---
PQ-Intro New Diagnosis Admission/Discharge Admission Date: Apr 02, 2021 at 16:27 Discharge Date: Apr 07, 2021 at 18:25 Dr. Bazzi, The medical record reflects the following clinical scenario: History/Risk Factors: covid Clinical Findings: CXR - patchy bilateral infiltrates consistent w/ pneumonia Treatment: Remdesivir, Decadron, Albuterol, Umeclidinium bromide Question: What condition best reflects the above clinical scenario? Please document a response in the Progress Noter or Discharge Summary. 1. Covid pneumonia 2. no pneumonia Covid only 3. Other, with explanation of the clinical findings. 4. Clinically undetermined, no explanation for the clinical findings. PHYSICIAN RESPONSE What condition reflects above: 1 Please remember a lack of response to the above will prompt a phone page by [facility] staff. In responding to this query, please exercise your independent professional judgment. The purpose of this communication is to more accurately reflect the complexity of your patients condition. The fact that a question is asked does not imply that any particular answer is desired or expected. Thank you for your timely response to this clarification. Requestors name: Angélica THIS PHYSICIAN QUERY FORM IS A PERMANENT PART OF THE MEDICAL RECORD ANGÉLICA JETER Apr 09, 2021 11:07 MIKE BAZZI MD Apr 14, 2021 21:44
== END 2021-04-07 18:25 | disposition home or self-care (01) | DRG 177 ==
LOC: EDUNIT# 14:22 → ER 14:25 → 4TH 16:27
PROVIDERS: ADMIT Family Medicine; ATTEND Internal Medicine
PROC: XW033E5 Introduction of Remdesivir Anti-infective into Peripheral Vein, Percutaneous Approach, New Technology Group 5 (ICD-10-PCS; principal; 2021-04-03)
PROC: XW13325 Transfusion of Convalescent Plasma (Nonautologous) into Peripheral Vein, Percutaneous Approach, New Technology Group 5 (ICD-10-PCS; 2021-04-05)
DX: U07.1 COVID-19 (principal); J96.01 Acute respiratory failure with hypoxia; J12.82 Pneumonia due to coronavirus disease 2019; E11.65 Type 2 diabetes mellitus with hyperglycemia; T38.0X5A Adverse effect of glucocorticoids and synthetic analogues, initial encounter; Z73.0 Burn-out
CPT/HCPCS: 36415; 71045; 71275; 80048; 80053; 82947; 83036; 84145; 85025; 85027; 85379; 85610; 86141; 86900; 86901; 87040; 94640; 94760; 94761

== ENCOUNTER → 2021-08-10 | Outpatient (CLI) | payer OTHER ==
[~2021-08-10] MED LIST: METF-397 PO
--- NOTE | 2021-08-10 14:26 | Diagnostic Imaging Report ---
Exam: CT chest without intravenous contrast with high-resolution images. Technique: Axial noncontrast CT images of the chest were obtained with typical protocol with the separately performed thin section high-resolution protocol noncontrast axial images of the chest in prone and supine positioning. DATE: August 10, 2021. COMPARISON: CT chest April 02, 2021. INDICATION: 45-year-old male, shortness of breath on exertion. History of prior COVID infection in April 2021. PROCEDURE: Axial noncontrasted CT images of the chest. Noncontrasted limits the evaluation of the mediastinum and vascular structures. FINDINGS: There are peripheral linear reticular opacities bilaterally with fairly symmetric appearance. There is somewhat of a mid and lower lung zone predominance. There is no characteristic peripheral honeycombing. There is no groundglass lung consolidation. There is no pneumothorax. There is no pleural effusion. The central airways are patent. There is no pulmonary nodule or lung mass. There is no bronchiectasis. The trachea is normal in caliber. The heart is not enlarged. There is no pericardial effusion. There is no identified abnormally enlarged mediastinal or axillary lymph node meeting CT size criteria for adenopathy. Imaged portions of the upper abdomen are unremarkable. There is no acute bony abnormality. IMPRESSION: 1. Peripheral reticular lung opacities without characteristic peripheral honeycombing. This is in the distribution of previously noted multifocal lung consolidation and most likely reflects mild scarring relating to prior COVID 19 infection. 2. No evidence of an acute cardiopulmonary abnormality. Dictated by: Dictated on workstation # [id number]
== END ==
LOC: RAD 11:26
PROVIDERS: ATTEND Nurse Practitioner Family
DX: R91.8 Other nonspecific abnormal finding of lung field (principal); R06.00 Dyspnea, unspecified; Z86.16 Personal history of COVID-19
CPT/HCPCS: 71250